=== PATIENT | male | born 1990 | race Caucasian/White ===

== ENCOUNTER 2018-01-12 23:17 | Observation (INO) | payer MEDICAID, OTHER ==
[~2018-01-12] VITALS: Ht 172.7 cm; Wt 63.8 kg
[2018-01-12 23:48] LABS: BASOPHILS # (AUTO) 0.05 x10^3/uL (0-0.1); BASOPHILS % (AUTO) 0 % (0-1); EOSINOPHILS # (AUTO) 0.04 x10^3/uL (0-0.4); EOSINOPHILS % (AUTO) 0 % (1-7); LYMPHOCYTES # (AUTO) 2.48 x10^3/uL (1-3.4); LYMPHOCYTES % (AUTO) 20 % (22-44); MD NO; MEAN CORPUSCULAR HEMOGLOBIN 32.8 pg (27.5-34.5); MEAN CORPUSCULAR VOLUME 93.7 fL (81-97); MEAN PLATELET VOLUME 7.6 fL (7.4-10.4); MONOCYTES # (AUTO) 0.57 x10^3/uL (0.2-0.8); MONOCYTES % (AUTO) 5 % (2-9); NEUTROPHILS % (AUTO) 75 % (42-75); PLATELET COUNT 285 x10^3/uL (130-400); RED BLOOD COUNT 5.34 x10^6/uL (4.38-5.82); RED CELL DISTRIBUTION WIDTH 13.8 % (9.4-14.8)
[2018-01-12 23:58] LABS: ANION GAP 5 mmol/L (5-15); CALCIUM 8.9 mg/dL (8.5-10.1); CHLORIDE 106 mmol/L (98-107); CREATININE 0.93 mg/dL (0.7-1.3); SALICYLATE LEVEL 4.1 mg/dL (2.8-20.0)
[2018-01-13] LABS: ACETAMINOPHEN < 2 mcg/mL (10-30)
[2018-01-13] MEDS ORDERED: SODIUM CHLORIDE 0.9% 1,000ML IVBOLUS ONE
[2018-01-13 00:22] LABS: AMPHETAMINE SCREEN, URINE Negative (Negative); BARBITURATE SCREEN, URINE Negative (Negative); BENZODIAZEPINE SCREEN, URINE Negative (Negative); CANNABINOID SCREEN, URINE Positive (Negative); COCAINE SCREEN, URINE Negative (Negative); METHADONE SCREEN, URINE Negative (Negative); OPIATE SCREEN, URINE Negative (Negative)
[2018-01-13] MEDS ORDERED: LORazepam 2 MG/ML, 1ML ONE (00:29)
[2018-01-13] MEDS ORDERED: PLEASE ENTER ALLERGIES MC SCH (00:30)
[2018-01-13] MEDS ORDERED: LORazepam 2 MG/ML, 1ML IVPush ONE ×2 (02:30)
[2018-01-13 03:27] VITALS: BP 122/84
[2018-01-13] MEDS ORDERED: DOCUSATE 100 MG CAPSULE PO PRN (03:30)
[2018-01-13] MEDS ORDERED: LORazepam 2 MG/ML, 1ML IM PRN (03:30)
[2018-01-13 08:00] VITALS: BP 92/53
[2018-01-13] MEDS: NICOTINE 7 MG/24 HR PATCH.TD24 TD SCH (09:00)
[2018-01-13] MEDS: FLUCONAZOLE 200 MG TABLET PO SCH (12:09)
[2018-01-13] MEDS: LORazepam 1MG TABLET PO PRN ×4 (12:51→22:17)
[2018-01-13 14:08] LABS: MICROSCOPIC INDICATED
[2018-01-13 14:21] LABS: CULTURE INDICATED? NO
[2018-01-13] MEDS ORDERED: DIVA500T2 PO (16:49)
[2018-01-13] MEDS ORDERED: OLAN10TA9 PO (16:49)
[2018-01-13] MEDS ORDERED: FLUO10CA13 PO (16:52)
[2018-01-13 19:28] VITALS: BP 137/83
[2018-01-13] MEDS ORDERED: ZOLPIDEM 5MG TABLET ONE (20:40)
[2018-01-13] MEDS: DIVALPROEX 500 MG TABLET.DR PO SCH ×2 (20:42→20:45)
[2018-01-13] MEDS ORDERED: OLANZAPINE 10 MG TABLET PO SCH (21:00)
[2018-01-13] MEDS ORDERED: ZOLPIDEM 10MG TABLET PO PRN (21:00)
[2018-01-14 07:45] VITALS: BP 94/54
[2018-01-14] MEDS: FLUOXETINE 10 MG CAP PO SCH (08:37)
[2018-01-14] MEDS: FLUCONAZOLE 200 MG TABLET PO SCH (08:37)
[2018-01-14] MEDS: NICOTINE 7 MG/24 HR PATCH.TD24 TD SCH (08:37)
[2018-01-14] MEDS: DIVALPROEX 500 MG TABLET.DR PO SCH ×2 (08:37→20:21)
[2018-01-14] MEDS: LORazepam 1MG TABLET PO PRN ×2 (12:08→14:53)
[2018-01-14] MEDS: ZOLPIDEM 5MG TABLET PO PRN (20:22)
[2018-01-14] MEDS: OLANZAPINE 10 MG TABLET PO SCH (20:22)
[2018-01-14 20:33] VITALS: BP 123/78
[2018-01-15] MEDS: ACETAMINOPHEN 325 MG TABLET PO PRN ×2 (03:42→08:00)
[2018-01-15 08:07] VITALS: BP 138/84
[2018-01-15] MEDS: DIVALPROEX 500 MG TABLET.DR PO SCH ×2 (08:08→20:40)
[2018-01-15] MEDS: FLUCONAZOLE 200 MG TABLET PO SCH (08:09)
[2018-01-15] MEDS: FLUOXETINE 10 MG CAP PO SCH (08:09)
[2018-01-15] MEDS: LORazepam 1MG TABLET PO PRN ×2 (10:42→18:05)
[2018-01-15] MEDS: NICOTINE 7 MG/24 HR PATCH.TD24 TD SCH (11:44)
[2018-01-15 19:41] VITALS: BP 136/84
[2018-01-15] MEDS: ZOLPIDEM 5MG TABLET PO PRN (20:40)
[2018-01-15] MEDS: OLANZAPINE 10 MG TABLET PO SCH (20:40)
== END 2018-01-15 22:58 ==
LOC: ED 01-13 00:59 → EDIP 01-13 01:22 → 2N 01-13 03:22
PROVIDERS: ADMIT Internal Medicine; ATTEND Internal Medicine
DX: R45.851 Suicidal ideations (principal); F20.9 Schizophrenia, unspecified; F15.10 Other stimulant abuse, uncomplicated; F12.10 Cannabis abuse, uncomplicated; F10.10 Alcohol abuse, uncomplicated; Z87.891 Personal history of nicotine dependence
CPT/HCPCS: 36415; 80048; 80307; 80329; 81001; 82040; 85025; 86592; 87491; 87529; 87591; 96374; 96376; 99285; G0378; J2060; J7030; G0480